=== PATIENT | male | born 1935 | race Caucasian/White ===

== ENCOUNTER 2016-11-16 08:40 | Day surgery (SDC) | payer MEDICARE, BC ==
[~2016-11-16] VITALS: Ht 182.9 cm; Wt 92.1 kg
[2016-11-16] VITALS (9 sets, daily range): BP systolic 109–152; BP diastolic 57–75; PULSE 48–56; TEMP 98
[2016-11-16] MEDS ORDERED: GLUCOTROL 5M5 MG/TAB PO (10:14)
[2016-11-16] MEDS ORDERED: LOFIBRA160 MG PO (10:15)
[2016-11-16] MEDS ORDERED: PRINIVIL5 MG PO (10:15)
[2016-11-16] MEDS ORDERED: LOPRESSOR 225 MG/TAB PO (10:16)
[2016-11-16] MEDS ORDERED: ASPIRIN E.C. 8181 MG PO (10:17)
[2016-11-16] MEDS ORDERED: XANAX 0.5MG0.5 MG PO (10:18)
[2016-11-16] MEDS ORDERED: VITAMIN D1000 IU PO (10:19)
== END 2016-11-16 13:45 | disposition home or self-care (01) ==
LOC: SDCO 08:40
DX: Z12.11 Encounter for screening for malignant neoplasm of colon (principal); Z86.010 Personal history of colon polyps; K64.1 Second degree hemorrhoids
CPT/HCPCS: J2250; J2405; J3010; J7030